=== PATIENT | female | born 1965 | race Hispanic/Latino ===

== ENCOUNTER → 2025-03-14 | Day surgery (SDC) | payer OTHER ==
[~2025-03-14] MED LIST: LIDOCAINE HCL 2% LOCAL INJ 5 ML SDV VIAL INJ ONE; MIDAZOLAM HCL 2 MG/2 ML VIAL ONE; PROPOFOL IV EMULSION 10 MG/ML 20 ML VIAL ONE
[2025-03-14] MEDS: LACTATED RINGER'S 1,000 ML ONE (07:22)
[2025-03-14 09:20] VITALS: TEMP 97.1
[2025-03-14 09:40] VITALS: BP 110/83; PULSE 70; RESP 18; O2SAT 100
== END | disposition home or self-care (01) ==
LOC: OR 06:42
PROVIDERS: ATTEND Internal Medicine Gastroenterology
DX: Z12.11 Encounter for screening for malignant neoplasm of colon (principal); D12.3 Benign neoplasm of transverse colon; R13.10 Dysphagia, unspecified; K64.8 Other hemorrhoids; R14.0 Abdominal distension (gaseous); K21.9 Gastro-esophageal reflux disease without esophagitis; R19.6 Halitosis; Z01.810 Encounter for preprocedural cardiovascular examination; Z80.0 Family history of malignant neoplasm of digestive organs
CPT/HCPCS: 45378; 45384; 93005; J2003; J2250